=== PATIENT | male | born 1955 | race African-American/Black ===

== ENCOUNTER 2020-12-16 10:40 | Emergency (ER) | payer MEDICARE ==
[~2020-12-16] VITALS: Ht 165.1 cm; Wt 59.0 kg
[2020-12-16] MEDS ORDERED: DIATRIZOATE MEGL/DIATRIZOA SOD 30 ML BTL PO ONE (12:52)
== END 2020-12-16 14:18 ==
LOC: ER 10:50
DX: Z43.1 Encounter for attention to gastrostomy (principal); L89.159 Pressure ulcer of sacral region, unspecified stage; I10 Essential (primary) hypertension; K21.9 Gastro-esophageal reflux disease without esophagitis; Z87.820 Personal history of traumatic brain injury
CPT/HCPCS: 74018; 99284

== ENCOUNTER → 2020-12-19 | Emergency (ER) | payer MEDICARE ==
[~2020-12-19] VITALS: Ht 165.1 cm; Wt 59.0 kg
== END ==
LOC: ER 21:33
DX: Z43.4 Encounter for attention to other artificial openings of digestive tract (principal); I10 Essential (primary) hypertension; K21.9 Gastro-esophageal reflux disease without esophagitis; Z87.820 Personal history of traumatic brain injury